=== PATIENT | male | born 1955 | race Caucasian/White ===

== ENCOUNTER 2018-11-05 20:45 | Inpatient (IN) ==
[2018-11-05 23:22] LABS: BASO# 0.04 X1000 (0.0-0.2); BASO% 0.4 % (0.0-0.8); EOS# 0.26 X1000 (0.0-0.7); EOS% 2.7 % (0.0-10.0); HEMATOCRIT 37.8 % (42.0-52.0); HEMOGLOBIN 13.5 g/dL (14.0-18.0); IMM GRAN# 0.02 X1000 (0.0-0.04); IMM GRAN% 0.2 % (0.0-0.5); LYMPH# 1.84 X1000 (1.2-3.4); LYMPH% 19.2 % (20.5-51.1); MCH 28.7 PG (27-31); MCHC 35.7 g/dL (33-37); MCV 80.3 FL (81-99); MONO# 0.62 X1000 (0.11-0.59); MONO% 6.5 % (1.7-9.3); MPV 9.8 FL (7.4-10.4); NEUT# 6.81 X1000 (1.4-6.5); PLT 231 X1000 (130-400); RBC 4.71 XMIL (4.7-6.1); RDW 14.3 % (11.5-14.5); WBC 9.59 X1000 (4.8-10.8)
[2018-11-05 23:57] LABS: ALB/GLOB RATIO 1.2; CALCIUM 8.5 mg/dL (8.8-10.2); CREATININE 1.7 mg/dL (0.7-1.2); TOTAL BILIRUBIN 0.73 mg/dL (0.20-1.00); TOTAL PROTEIN 7.3 g/dL (6.3-8.3)
[2018-11-05 23:58] LABS: POTASSIUM 2.2 mmol/L (3.5-5.1)
[2018-11-06] MEDS ORDERED: POTASSIUM CHLORIDE 40 MEQ in NS 1,000 ML IV ONE ×2
[2018-11-06] MEDS ORDERED: POTASSIUM CHLORIDE 20% LIQUID PO ONE (02:04)
[2018-11-06 07:17] LABS: URINE SOURCE CLEAN CATCH
[2018-11-06 07:20] LABS: BILIRUBIN URINE SMALL (NEGATIVE); BLOOD URINE LARGE (NEGATIVE); COLOR YELLOW; GLUCOSE URINE NEGATIVE (NEGATIVE); KETONE URINE 10 mg/dL (NEGATIVE); LEUKOCYTES URINE TRACE (NEGATIVE); NITRITE URINE NEGATIVE (NEGATIVE); PROTEIN URINE 100 mg/dL (NEGATIVE); SP GRAVITY URINE 1.022; TURBIDITY URINE CLEAR (CLEAR); UROBILINOGEN URINE 2 mg/dL (NORMAL)
[2018-11-06 08:00] LABS: UR EPITHELIAL CELLS <10 /HPF (<10); URINE BACTERIA NEGATIVE /HPF; URINE RBC <10 /HPF (<10); URINE WBC <10 /HPF (<10)
[2018-11-06 08:01] LABS: URINE CASTS NONE SEEN
[2018-11-06] MEDS ORDERED: ROCEPHIN IV ONE (08:35)
--- NOTE | 2018-11-06 08:35 | PROVIDER DOCUMENTATION ---
This chart was entered by Mana Sharma Scribe, acting as scribe for Yo Farley MD. HPI-General Adult - General Chief Complaint: Nausea/Vomiting Stated Complaint: generalized pain Time Seen by Provider: 11/05/18 22:17 Source: patient Allergies/Adverse Reactions: Patient Allergies Allergy/AdvReac Type Severity Reaction Status Date / Time No Known Allergies Allergy Unverified 06/30/18 13:05 Home Medications: Home Medication List Medication Instructions Recorded Confirmed Last Taken Type Acetaminophen with Codeine 1 each PO BID PRN PRN 06/30/18 11/06/18 Unknown History [Acetaminophen-Cod #4 Tablet] Carisoprodol [Soma] 350 mg PO HS PRN 06/30/18 11/06/18 Unknown History Clonazepam [Klonopin] 0.25 mg PO HS PRN 06/30/18 11/06/18 Unknown History Clonazepam [Klonopin] 0.25 mg PO TID PRN 06/30/18 11/06/18 Unknown History Fluticasone Propionate 220 INH 120 puff INH Q6H PRN PRN 06/30/18 11/06/18 Unknown History [Flovent 220 Microgm Hfa] Ipratropium/Albuterol INH 1 puff INH Q6H PRN PRN 06/30/18 11/06/18 Unknown History [Combivent Respimat Inhaler] Lovastatin 40 mg PO DAILY 06/30/18 11/06/18 Unknown History Montelukast Sodium [Singulair] 10 mg PO DAILY 06/30/18 11/06/18 Unknown History Aspirin 81 mg PO DAILY chewtab 07/11/18 11/06/18 Unknown Rx Cholecalciferol (Vit D3) [Vitamin 2,000 unit PO DAILY tablet 07/11/18 11/06/18 Unknown Rx D3] Cyanocobalamin (Vitamin B-12) 1,000 mcg PO DAILY #120 cap 07/11/18 11/06/18 Unknown Rx [Vitamin B-12] Folic Acid 1 mg PO BID tablet 07/11/18 11/06/18 Unknown Rx Magnesium Oxide [Mag-Ox] 400 mg PO BID tablet 07/11/18 11/06/18 Unknown Rx Pantoprazole [Protonix] 40 mg PO BID tablet 07/11/18 Unknown Rx Tamsulosin [Flomax] 0.4 mg PO QHS capsule 07/11/18 11/06/18 Unknown Rx Fexofenadine [Perlita] 180 mg PO DAILY 11/06/18 11/06/18 Unknown History Hydrochlorothiazide 25 mg PO DAILY 11/06/18 11/06/18 Unknown History - History of Present Illness -Gen Adult Nature of Presenting Problems: Pt is 63 M, presenting to ED w/ n/v for the last 3-5 days. he sts that he cannot walk well and that he feels the same as when he had Sepsis back in July. vx12+ today Location of Pain/Injury: reports: abdomen Pain Radiation: reports: no radiation Quality of Pain: reports: aching Severity: reports: moderate Onset/Duration: reports: 5 days ago Timing: reports: still present Context/Activities at Onset: reports: none Modifying Factors: improves with: nothing Associated Symptoms: reports: nausea, vomiting. denies: fever/chills Similar Symptoms Previously?: No Recently seen or treated by another doctor?: No Review of Systems - Adult - REVIEW OF SYSTEMS - ADULT Constitutional: reports: no symptoms reported. denies: chills, fever Eyes: reports: no symptoms reported Ears, Nose, Mouth & Throat: reports: no symptoms reported Cardiovascular: reports: no symptoms reported. denies: chest pain, edema Respiratory: reports: no symptoms reported. denies: cough, shortness of breath , wheezing Gastrointestinal: reports: abdominal pain, nausea, vomiting. denies: diarrhea Genitourinary: reports: no symptoms reported Musculoskeletal: reports: no symptoms reported Integumentary: reports: no symptoms reported Neurological: reports: no symptoms reported. denies: dizziness/vertigo, headache/migraines Psychiatric: reports: no symptoms reported Endocrine: reports: no symptoms reported Hematologic/Lymphatic: reports: no symptoms reported Allergic/Immunologic: reports: no symptoms reported All Other Systems: Reviewed and Negative Past History - Adult - PAST MEDICAL HISTORY-ADULT Review of Records: reports: Old Records Reviewed, Nursing Assessment Review, Medications Reviewed, Social history reviewed & non-contributory. Major Childhood Illnesses: reports: denies history Cardiovascular: reports: denies history Respiratory: reports: denies history Gastrointestinal: reports: denies history Obstetrical/Gynecological: reports: denies history Genitourinary: reports: denies history Musculoskeletal: reports: denies history Neurological: reports: denies history Psychiatric: reports: denies history Endocrine/Immune: reports: denies history Other Conditions: reports: denies history - PRIOR SURGERIES/PROCEDURES Surgical/Procedure History: reports: reviewed, not pertinent - IMMUNIZATION STATUS Childhood Immunizations: See Nurse Assessment Flu Vaccine: See Nurse Assessment - FAMILY HISTORY Family History: reviewed, not pertinent - SOCIAL HISTORY Smoking: quit greater than 1 year Provider spent 3-5 mins advising pt. on dangers of tobacco.: Discussed manners to quit use, and f/u contacts for add'l counseling. Substance Use: none/never Alcohol Use Frequency: occasionally Physical Exam-General - PHYSICAL EXAM-ADULT Initial Vital Signs Reviewed: Yes - CONSTITUTIONAL General Appearance: appears well, alert, mild distress - EYES Eyes: PERRL/EOMI - HEAD, EARS, NOSE, MOUTH & THROAT HENMT: normocephalic/atraumatic, moist mucous membranes, normal ENT inspection, TMs normal, pharynx normal - NECK Neck: non-tender, full range of motion, supple, normal inspection - RESPIRATORY Respiratory: chest non-tender, lungs clear, normal breath sounds - CARDIOVASCULAR Cardiovascular: regular rate, rhythm, no edema - GASTROINTESTINAL (ABDOMEN) Abdominal Exam: normal bowel sounds, non tender, soft, no organomegaly, no pulsatile mass. negative: guarding, rigid, rebound, tenderness - LYMPHATIC Lymphatic: no adenopathy - MUSCULOSKELETAL Back Exam: normal inspection, no CVA tenderness, no vertebral tenderness Extremity: normal range of motion, non-tender, normal gait, normal inspection - SKIN Integumentary: normal color, normal turgor, warm/dry - NEUROLOGIC Neurologic: full stack net developer II-XII nml as tested, grossly normal - PSYCHIATRIC Psych/Mental Status: normal mood/affect, normal thought content, normal thought process, oriented x 3 Progress - PLAN OF CARE/RESULTS Progress/Plan/Lab Results: Vital Signs - 8 hr 11/05/18 20:55 Temperature 98.1 F Pulse Rate 89 Respiratory Rate 16 Blood Pressure 125/63 O2 Sat by Pulse Oximetry 97 Orders Category Date Time Status ALCOHOL BLOOD Stat Lab 11/05/18 23:06 Ordered CBC WITH ELECTRONIC DIFF [HEME] Stat Lab 11/05/18 23:06 Ordered COMPREHENSIVE METABOLIC PANEL [CHEM] Stat Lab 11/05/18 23:06 Ordered URINALYSIS [URINALYSIS] Stat Lab 11/05/18 21:31 Uncollected EKG [EKG] Stat Ther 11/05/18 20:56 Ordered At recheck pt is still feeling weak and unable to ambulate in the ER unassisted. Result Diagrams: 11/07/18 07:02 11/07/18 07:02 - EKG 1 Time of EKG reading by physician:: 21:07 EKG Read and Signed by:: Yo Farley EKG Interpretation (*Must complete 3 of following elements*): Normal (sinus rhythm with premature atrial complexes, Otherwise normal GREG) Rate: 87 [place]: normal - CONSULTS/PCP/HOSPITALIST Notification #1 *Consult/PCP/Hospitalist*: Verónica for Dr Quinonez Time Discussed: 08:34 Consult Disposition: Admit Departure - Departure Date of Disposition Decision: 11/06/18 Time of Disposition Decision: 08:34 DIAGNOSIS: UTI (urinary tract infection), Hypokalemia Disposition: ADMITTED INPATIENT 09 Certified Medical Emergency: Emergent Condition: Fair - Critical Care Note This patient required my direct & personal management of CC.: No Attestation - Physician/ KATHERINE Attestation Patient care was provided by Advanced Practice Provider:: No The physician spent face to face time with patient:: Yes Advanced Practice Provider documentation review:: Supervising physician onsite and consulted in the evaluation and care of this patient. The physician did have a face to face encounter with the patient. This chart was documented by the indicated scribe, (Mana Sharma, Scribe) and accurately reflects the services I performed and decisions made by me, Yo Farley MD, as attested by the provider's signature.
[2018-11-06] MEDS ORDERED: ROCEPHIN 1 GM in NS 50 ML IV ONE (09:13)
[2018-11-06 09:33] LABS: MAGNESIUM 2.3 mg/dL (1.5-2.7); PHOSPHORUS 2.7 mg/dL (2.7-4.5)
--- NOTE | 2018-11-06 09:33 | HISTORY AND PHYSICAL ---
SUBJECTIVE: Apparently, he is living in a hotel. I am not sure if he is even inside at the present time. It appears that he is homeless. He has not been able to walk and he has been falling. Frequent falls. He has some abrasions on his face and forehead. He has scratches on his lower extremities and so came to our emergency room. His potassium is low. He is awake. He is alert and gives a pretty good history. PAST MEDICAL HISTORY: 1. Chronic pain disorder. 2. Hypertension. 3. Dyslipidemia. 4. COPD. 5. Benign prostatic hypertrophy. PAST SURGICAL HISTORY: He denies any surgical history. SOCIAL HISTORY: A pack to two packs a day of cigarettes. He says no alcohol. ALLERGIES: No known drug allergies. PHYSICIAN: His doctor is Dr. Paniagua, I believe, is what he says. MEDICATIONS FROM HOME: We will review his list. The list that I saw from June 2018 was Norvasc 5 mg a day, Soma p.r.n., Klonopin p.r.n., Flovent inhaler, hydrochlorothiazide 25 mg a day, Combivent, lansoprazole 30 mg a day, lisinopril 40 mg a day, lovastatin 40 mg a day, and Singulair 10 mg a day. REVIEW OF SYSTEMS: He is not sure about weight but he does not report any weight gain or loss. He does not report any fever or chills. No reports of change in vision or hearing acuity. No neck pain. No shoulder or arm pain, or back pain reported. Respiratory: No increased work of breathing or dyspnea. He does have underlying COPD. Cardiovascular: He does not report any chest pain or palpitations. Endocrinologic/Hematologic: No significant history. GI and : He has no complaints of change in bowels or nausea or diarrhea or gross hematuria or dysuria. PHYSICAL EXAMINATION: VITAL SIGNS: In the emergency room, sitting up, temperature 98.0 degrees, pulse 80, respirations 20, blood pressure 132/87, O2 saturation 99%. Weight 180 pounds, height 5 feet 11 inches. HEENT: His pupils were equal. Conjunctivae pink. Sclerae were clear. LYMPHATICS: I did not appreciate any periauricular, cervical, or supraclavicular adenopathy. LUNGS: Clear anterolateral. No wheezes or rhonchi. CARDIOVASCULAR EXAMINATION: Regular rhythm and rate without murmur S3. PMI nondisplaced. ABDOMEN: Soft, nontender. No sign of ascites. EXTREMITIES: He has abrasions and they look fairly recent on his feet and on his legs. They go up to his ceballos, almost to his knee. No pedal edema. LAB: Reviewed labs. White count 9590, hematocrit 37, platelet count 231,000. Chemistry: Sodium 131, potassium is 2.2. He was given some potassium and it is up to 2.8. Chloride 90, BUN 35, creatinine 1.7. AST 286, ALT 65, alkaline phosphatase 150, total protein 7.3. Note, his creatinine was 0.9 back in July. ASSESSMENT AND PLAN: 1. General weakness. I do not think his nutrition has had much intake. We will check and follow his electrolytes including phosphorus, magnesium, potassium, and calcium. We will check his T4, TSH, B12, and folate. We will get a cortisol level now and we will also get one in the morning, and give him some intravenous fluids and see how he does with oral intake. 2. Acute kidney injury. I suspect most of this is prerenal. We will give him some intravenous fluids. Give him normal saline. Actually, we will start off at 125 mL an hour for 8 hours. Then we will go down to 85 mL an hour. 3. Elevated liver enzymes. Apparently, he has denied alcohol but I think we have to be ready for possible alcohol withdrawals. 4. Muscle weakness, probably multifactorial, electrolytes, nutrition. We will see if we can supplement and corrected his imbalances, and have physical therapy work with him. 5. Abrasions on his feet. We will apply topical care and ask wound care to help. 6. He is homeless. We are going to have to figure out where he can go. We will get social service involved. 7. Elevated liver enzymes. We will get a hepatitis profile. Looking back at his records, I do not see any history of hepatitis reported anyway. 8. Chronic obstructive pulmonary disease, history of tobacco. 9. I do see a history of chronic pain syndrome. 10. Looking at his recorded medications from home, he apparently was taking codeine #4. We will obviously hold that. Aspirin 81 mg a day. He was getting Soma 350 mg at bedtime. We will hold the Soma and the codeine #4. He was getting vitamin D3 2000 units a day. He was getting Klonopin 1 mg at bedtime. I think we can continue that. He was also getting Klonopin 0.25 mg by mouth three times a day so we will continue the Klonopin at 0.25 mg three times a day and the 1 mg at night. He is on vitamin B12 at 1000 mcg daily. He was getting a fluticasone inhaler which we will give him 2 puffs twice a day, folic acid 1 mg twice a day, Combivent Respimat inhaler 1 puff every 6 hours, lovastatin 40 mg daily. He was getting magnesium oxide 400 mg twice a day. We will hold his Singulair. He was getting Protonix 40 mg twice a day, MiraLAX 17 g twice a day, and then Flomax 0.4 mg at bedtime. cc: Deangelo Nolasco MD
[2018-11-06] MEDS ORDERED: NS + KCL 40 MEQ 1,000 ML IV ONE (10:27)
[2018-11-06] MEDS ORDERED: NS 1,000 ML IV ONE (10:27)
[2018-11-06] MEDS ORDERED: ZOFRAN IV PRN (10:27)
[2018-11-06] MEDS ORDERED: VITAMIN B-12 PO ONE (10:27)
[2018-11-06] MEDS: ASPIRIN PO SCH (11:51)
[2018-11-06] MEDS: KLONOPIN PO SCH ×3 (11:51→16:57)
[2018-11-06] MEDS: PROTONIX IV SCH (11:52)
[2018-11-06] MEDS: TYLENOL PO PRN (16:57)
[2018-11-06] MEDS: FOLIC ACID PO SCH (20:48)
--- NOTE | 2018-11-07 07:29 | EKG Report ---
Test Performed on : 11/07/2018 07:23:18 AM Test Reason : hypokalemia Blood Pressure : / mmHG Vent. Rate : 066 BPM Atrial Rate : 066 BPM P-R Int : 172 ms QRS Dur : 076 ms QT Int : 410 ms P-R-T Axes : 062 043 051 degrees QTc Int : 429 ms Normal sinus rhythm. with sinus arrhythmia. Normal ECG When compared with ECG of 05-NOV-2018 21:07, (Unconfirmed) premature atrial complexes. are no longer present QT has lengthened Confirmed by Emilio MUÑOZ, Ronny Marie ([id number]) on 11/07/2018 3:56:46 PM
--- NOTE | 2018-11-07 07:32 | Diag Imaging Result Doc PS360 ---
EXAM: CHEST-PORTABLE HISTORY: followd up TECHNIQUE: Chest single view COMPARISON: 07/01/2018 FINDINGS: Poor inspiratory effort. The heart is not enlarged. The right subclavian line has been removed since the prior exam. The vessels are not distended. There are no infiltrates. No effusion identified. IMPRESSION: Negative exam. Electronically signed by Brenton Kim 11/07/2018 7:30 AM
[2018-11-07 07:44] LABS: BASO# 0.01 X1000 (0.0-0.2); BASO% 0.2 % (0.0-0.8); EOS# 0.26 X1000 (0.0-0.7); EOS% 4.9 % (0.0-10.0); HEMATOCRIT 31.3 % (42.0-52.0); LYMPH# 1.22 X1000 (1.2-3.4); LYMPH% 22.9 % (20.5-51.1); MCH 28.7 PG (27-31); MCHC 35.1 g/dL (33-37); MCV 81.7 FL (81-99); MONO% 7.5 % (1.7-9.3); MPV 9.6 FL (7.4-10.4); NEUT# 3.44 X1000 (1.4-6.5); NEUT% 64.5 % (42.2-75.2); PLT 194 X1000 (130-400); RBC 3.83 XMIL (4.7-6.1); RDW 14.3 % (11.5-14.5); WBC 5.33 X1000 (4.8-10.8)
[2018-11-07 07:48] LABS: AGAP 13; ALB/GLOB RATIO 1.4; ALBUMIN 3.4 g/dL (3.5-5.0); ALKALINE PHOSPHATASE 101 U/L (32-122); BUN 18 mg/dL (8-22); CALCIUM 8.1 mg/dL (8.8-10.2); CHLORIDE 99 mmol/L (98-107); COSMO 276; ESTIMATED GFR > 60; GLUCOSE 130 mg/dL (70-104); GOT 153 U/L (10-34); GPT 46 U/L (10-44); MAGNESIUM 1.9 mg/dL (1.5-2.7); SODIUM 136 mmol/L (136-145); TCO2 24 mmol/L (25-35); TOTAL BILIRUBIN 0.52 mg/dL (0.20-1.00); TOTAL PROTEIN 5.8 g/dL (6.3-8.3)
[2018-11-07 08:19] LABS: POTASSIUM 2.5 mmol/L (3.5-5.1)
--- NOTE | 2018-11-07 08:23 | EKG Report ---
Test Performed on : 11/05/2018 9:07:18 PM Test Reason : a fib Blood Pressure : / mmHG Vent. Rate : 087 BPM Atrial Rate : 087 BPM P-R Int : 176 ms QRS Dur : 078 ms QT Int : 308 ms P-R-T Axes : 059 014 038 degrees QTc Int : 370 ms Sinus rhythm. with premature atrial complexes. Otherwise normal ECG No previous ECGs available Unconfirmed Result
[2018-11-07] MEDS: KLONOPIN PO SCH ×3 (08:53→17:53)
[2018-11-07] MEDS: ROCEPHIN 1 GM in NS 50 ML IV SCH (08:54)
[2018-11-07] MEDS: PROTONIX IV SCH ×2 (08:54→09:55)
[2018-11-07] MEDS: FOLIC ACID PO SCH ×2 (08:54→20:17)
[2018-11-07] MEDS: ASPIRIN PO SCH (08:54)
[2018-11-07] MEDS ORDERED: KLOR-CON PO ONE ×2 (09:20→10:27)
[2018-11-07] MEDS ORDERED: MAGNESIUM SULFATE 2 GM/S.W.I. 2 GM/50 ML IVPB IV ONE (09:21)
--- NOTE | 2018-11-07 10:30 | Diag Imaging Result Doc PS360 ---
EXAM: US GB < RUQ (LIMITED) HISTORY: elevated LFTs TECHNIQUE: Right upper quadrant ultrasound COMPARISON: None. FINDINGS: Normal pancreas. No abdominal aortic aneurysm. Normal inferior vena cava. No focal hepatic abnormality. The liver is mildly prominent. No ascites in the right upper quadrant. Normal right kidney. No hydronephrosis. The gallbladder is not present. The common bile duct measures 5 mm. IMPRESSION: 1.Cholecystectomy 2.Prominent liver Electronically signed by Brenton Kim 11/07/2018 10:27 AM
[2018-11-07] MEDS ORDERED: KLOR-CON PO SCH (12:30)
--- NOTE | 2018-11-07 13:58 | PROGRESS NOTE ---
DATE: 11/07/2018 SUBJECTIVE: He was awake and appeared comfortable, breathing comfortably. I asked him how he is doing. He says he is hurting and he would like to have his Tylenol 4 back. But, he stayed lethargic most of the day yesterday and had difficulty getting him to stand or walk. So, I told him that I was not going to start back his opioid pain medicines and he could pursue that as an outpatient if he wanted to. We need to supplement his potassium again; it was 2.5. OBJECTIVE: Vital signs: Temp 98.1 degrees, pulse 69, respirations 18, blood pressure 114/70. HEENT: Pupils are equal. Neck: No distended neck veins. Lungs: Clear in all lung carney. Cardiovascular: Regular rhythm and rate without murmur or S3. Abdomen: Soft. Skin: Warm and dry. His abrasions on his feet and legs seem to be improving. They are drying out. DIAGNOSTIC STUDIES: Ultrasound of abdomen: Status post cholecystectomy. He has a prominent liver. His EKG is really unremarkable. Normal sinus rhythm, normal EKG. He was found unable to walk and falling. I think he has been living in a hotel. Apparently he does have insurance. His feet and legs were scraped up. He was unable to hold up his weight. His potassium was very low. His ethanol level was 0. It would probably be reasonable to get a urine drug screen on him. I do not see that one was gotten on admission. ASSESSMENT AND PLAN: 1. General weakness, low potassium. Phosphorous and magnesium were a little low, so we will continue supplement. His magnesium was 1.9 so I gave him a little magnesium today as well. 2. Lethargy, metabolic encephalopathy. He is much better. He is awake and alert. 3. Apparently chronic pain syndrome. I am going to hold his opioids and we will let him use Tylenol and maybe some Motrin for pain. Dr. Paniagua is his doctor. 4. Abrasions on his legs and feet. Appear to be healing. 5. Elevated liver enzymes. We will continue to follow. We will send off for a hepatitis profile. 6. History of chronic obstructive pulmonary disease, history of tobacco. 7. Review of his list of medications. Right now he is on aspirin 81 mg a day. He is on Klonopin 0.25 mg t.i.d., folic acid 1 mg b.i.d., Protonix 40 mg IV daily. I have him on ceftriaxone 1 g q.24 hours just empirically; I do not have any sign of infection. He is getting normal saline. I think we are running it at 85 mL an hour. His renal function looks good, so I guess we can turn his fluids back to keep vein open. cc: Deangelo Nolasco MD
[2018-11-07] MEDS: TYLENOL PO PRN (20:17)
[2018-11-08 07:42] LABS: AGAP 10; BUN 11 mg/dL (8-22); CALCIUM 8.2 mg/dL (8.8-10.2); CHLORIDE 104 mmol/L (98-107); COSMO 277; CREATININE 0.7 mg/dL (0.7-1.2); ESTIMATED GFR > 60; GLUCOSE 105 mg/dL (70-104); POTASSIUM 2.9 mmol/L (3.5-5.1); SODIUM 139 mmol/L (136-145); TCO2 25 mmol/L (25-35)
[2018-11-08] MEDS: FOLIC ACID PO SCH ×2 (10:10→22:39)
[2018-11-08] MEDS: ROCEPHIN 1 GM in NS 50 ML IV SCH (10:10)
[2018-11-08] MEDS: ASPIRIN PO SCH (10:10)
[2018-11-08] MEDS: SODIUM CHLORIDE 0.9% INJ SCH (10:15)
[2018-11-08] MEDS: KLONOPIN PO SCH ×3 (10:15→22:39)
[2018-11-08] MEDS: PROTONIX IV SCH ×2 (10:20→10:29)
[2018-11-08 11:03] LABS: HEPATITIS PROFILE ACUTE SEE COMMENTS
[2018-11-08] MEDS: TYLENOL PO PRN (22:45)
[2018-11-09 07:11] LABS: BASO# 0.02 X1000 (0.0-0.2); BASO% 0.3 % (0.0-0.8); EOS% 3.3 % (0.0-10.0); HEMATOCRIT 33.1 % (42.0-52.0); HEMOGLOBIN 11.7 g/dL (14.0-18.0); IMM GRAN# 0.02 X1000 (0.0-0.04); IMM GRAN% 0.3 % (0.0-0.5); LYMPH# 1.82 X1000 (1.2-3.4); LYMPH% 29.8 % (20.5-51.1); MCH 29.3 PG (27-31); MCHC 35.3 g/dL (33-37); MONO# 0.48 X1000 (0.11-0.59); MONO% 7.9 % (1.7-9.3); MPV 9.4 FL (7.4-10.4); NEUT# 3.57 X1000 (1.4-6.5); NEUT% 58.4 % (42.2-75.2); PLT 215 X1000 (130-400); RBC 3.99 XMIL (4.7-6.1); RDW 14.9 % (11.5-14.5); WBC 6.11 X1000 (4.8-10.8)
[2018-11-09 07:48] LABS: AGAP 11; ALB/GLOB RATIO 1.5; ALBUMIN 3.5 g/dL (3.5-5.0); ALKALINE PHOSPHATASE 83 U/L (32-122); BUN 10 mg/dL (8-22); CALCIUM 8.4 mg/dL (8.8-10.2); CHLORIDE 105 mmol/L (98-107); COSMO 278; CREATININE 0.7 mg/dL (0.7-1.2); ESTIMATED GFR > 60; GLUCOSE 99 mg/dL (70-104); GOT 53 U/L (10-34); GPT 33 U/L (10-44); POTASSIUM 2.9 mmol/L (3.5-5.1); SODIUM 140 mmol/L (136-145); TCO2 24 mmol/L (25-35); TOTAL BILIRUBIN 0.37 mg/dL (0.20-1.00); TOTAL PROTEIN 5.8 g/dL (6.3-8.3)
[2018-11-09] MEDS: TYLENOL PO PRN ×2 (08:20→16:38)
[2018-11-09] MEDS: ROCEPHIN 1 GM in NS 50 ML IV SCH (08:20)
[2018-11-09] MEDS: ASPIRIN PO SCH (08:20)
[2018-11-09] MEDS: FOLIC ACID PO SCH ×2 (08:20→20:19)
[2018-11-09] MEDS: KLONOPIN PO SCH ×3 (08:20→20:20)
[2018-11-09] MEDS ORDERED: KLOR-CON PO ONE (08:45)
[2018-11-09] MEDS ORDERED: MAGNESIUM SULFATE 2 GM/S.W.I. 2 GM/50 ML IVPB IV ONE (08:45)
[2018-11-09] MEDS: PROTONIX IV SCH (11:52)
[2018-11-09] MEDS: SODIUM CHLORIDE 0.9% INJ SCH (11:52)
[2018-11-09] MEDS: POTASSIUM CHLORIDE 20 MEQ/SWI 20 MEQ/100 ML IVPB IV SCH ×2 (13:32→16:38)
[2018-11-09 16:11] LABS: AGAP 12; BUN 10 mg/dL (8-22); CALCIUM 8.6 mg/dL (8.8-10.2); CHLORIDE 104 mmol/L (98-107); COSMO 275; CREATININE 0.7 mg/dL (0.7-1.2); ESTIMATED GFR > 60; GLUCOSE 110 mg/dL (70-104); POTASSIUM 3.8 mmol/L (3.5-5.1); SODIUM 138 mmol/L (136-145); TCO2 22 mmol/L (25-35)
--- NOTE | 2018-11-09 16:33 | PROGRESS NOTE ---
DATE: 11/09/2018 SUBJECTIVE: This patient is sleepy but arousable. He is oriented x3. He is breathing comfortably. He is complaining of generalized weakness and generalized pain. He states that his abdomen is tender. His extremities are tender. Chest is tender. His potassium is still low and we have replaced that today again. Magnesium level was 2 yesterday. We have stopped his medications especially hydrochlorothiazide which can cause hypokalemia. I will put this patient back on some of his home medications and I will continue physical therapy. He has some pus coming out from his left great toe; it looks like it is coming from behind the nail. The wound care nurse called me and we will get a formal consult with Surgery Department to see if this needs to be removed right now. He is on ceftriaxone and I will continue with the same management. OBJECTIVE: Vital Signs: Temperature 97.8 degrees, pulse 72, respiratory rate 16, blood pressure 139/84, oxygen saturation 94 on room air. HEENT: Head normocephalic. No trauma. PERRLA. He does have some wounds on his face. They are dry. They look old. Neck: Supple. No JVD. Central trachea. Chest: Clear to auscultation. No wheezing. No rales. Abdomen: Soft, nontender, nondistended. No hepatosplenomegaly. Extremities: No edema. No clubbing. No cyanosis. He does have some wounds at the level of the toes, multiple. He is draining some pus from underneath the nail on the left side. As per the patient, he has been crawling to be able to move from 1 place to another and that is why he has those lesions. Neurological: Alert and oriented x3. No focal deficits. LABORATORY: WBC 6.1, hemoglobin 11.7, hematocrit 33.1, platelets 215,000. Sodium 140, potassium 2.9, chloride 105, bicarbonate 24, BUN 10, creatinine 0.7, glucose 99, calcium 8.4, albumin 3.5. ASSESSMENT AND PLAN: 1. Hypokalemia. I will replace the potassium today again. I will recheck the potassium in the afternoon and replace it as needed. Magnesium level is normal. 2. Lethargy, metabolic encephalopathy. This is much better. He is answering all of my questions. 3. Chronic pain syndrome. Apparently he has been having problems with opioids before and they have been stopped. We will continue with the same management. I will put this patient back on muscle relaxants. 4. Abrasions on his legs and feet. Those appear to be healing except that he has a left great toe infection. 5. Elevated liver enzymes. Continue to follow. Hepatitis profile has been negative. 6. History of chronic obstructive pulmonary disease, not in exacerbation. 7. History of tobacco abuse. Aware. He has been highly advised against tobacco use. I will continue with daily cessation education. 8. Some episodes of watery bowel movements/diarrhea. I will ask for a C. difficile toxin and antigen, stool WBC, and I will place this patient on some IV fluids. cc: John Juarez MD
[2018-11-09] MEDS: 1/2 NS 1,000 ML IV SCH (16:54)
[2018-11-09] MEDS: FLOMAX PO SCH (20:19)
[2018-11-09] MEDS: SOMA PO PRN (22:35)
--- NOTE | 2018-11-10 02:20 | GENERAL SURGERY CONSULTATION ---
DATE: 11/09/2018 HISTORY OF PRESENT ILLNESS: This is a 63-year-old gentleman who was admitted to the hospitalist service on the . He has apparently had a fall. He has had a history of homelessness, lives in a hotel, and presented with abrasions on his lower extremities and face. Unclear the etiology of this, but he has significant electrolyte derangements, and was admitted for management. He has multiple chronic medical problems. He is undergoing local wound care, however there are concerns about his left 1st toe not improving. He does not really have much in the way of pain. He thinks he is getting better. MEDICAL HISTORY: Chronic pain, hypertension, hyperlipidemia, COPD, BPH. SURGICAL HISTORY: No vascular surgeries. No other surgeries for that matter. SOCIAL HISTORY: Smokes 2 packs a day. No alcohol. He is homeless at times. Dr. Paniagua is his physician. REVIEW OF SYSTEMS: Ten-point negative. FAMILY HISTORY: Reviewed and noncontributory. PHYSICAL EXAMINATION: Vital Signs: Temperature 97.8 degrees, pulse 72, blood pressure 139/84. General: He is unkempt, but in no acute distress. HEENT: No scleral icterus. Cardiovascular: Normal rate. Pulmonary: No increased work of breathing. Abdomen: Soft. Integument: Warm and dry. There are scattered abrasions over his face and lower extremities. Peripheral Vascular: He has palpable pedal pulses and femoral pulses. He has a granulating wound to his left 1st toe. I do not see any necrosis or purulence. There is some drainage. It is serous. No lower extremity edema. Lymphatic: No inguinal adenopathy. LABS: White count 6, hematocrit 33, creatinine 0.7. Potassium is up to 3.8. It has been low in the 2s most of the week. Albumin is 3.5. I reviewed his progress notes. He did have an abdominal ultrasound that apparently showed post cholecystectomy changes. ASSESSMENT AND PLAN: This is a 63-year-old gentleman with multiple abrasions. He has a wound to his left 1st toe. I would continue local wound care, as you are doing currently. I do not see signs of infection. He is on antibiotics. Possibly, this looked worse previously. We will continue to follow him along, monitor him closely, but I do suspect that he will improve with antibiotics and local wound care. cc: Koko Jackson MD
[2018-11-10 07:02] LABS: BASO# 0.02 X1000 (0.0-0.2); BASO% 0.3 % (0.0-0.8); EOS# 0.12 X1000 (0.0-0.7); EOS% 1.7 % (0.0-10.0); HEMATOCRIT 35.1 % (42.0-52.0); HEMOGLOBIN 12.2 g/dL (14.0-18.0); LYMPH# 1.64 X1000 (1.2-3.4); LYMPH% 23.9 % (20.5-51.1); MCH 29.2 PG (27-31); MCHC 34.8 g/dL (33-37); MONO# 0.51 X1000 (0.11-0.59); MONO% 7.4 % (1.7-9.3); MPV 9.3 FL (7.4-10.4); NEUT# 4.58 X1000 (1.4-6.5); NEUT% 66.7 % (42.2-75.2); PLT 222 X1000 (130-400); RBC 4.18 XMIL (4.7-6.1); RDW 15.3 % (11.5-14.5); WBC 6.87 X1000 (4.8-10.8)
[2018-11-10 07:22] LABS: AGAP 11; BUN 7 mg/dL (8-22); CALCIUM 8.2 mg/dL (8.8-10.2); CHLORIDE 105 mmol/L (98-107); COSMO 274; CREATININE 0.7 mg/dL (0.7-1.2); ESTIMATED GFR > 60; GLUCOSE 106 mg/dL (70-104); POTASSIUM 3.4 mmol/L (3.5-5.1); SODIUM 138 mmol/L (136-145); TCO2 22 mmol/L (25-35)
[2018-11-10] MEDS: 1/2 NS 1,000 ML IV SCH ×3 (07:34→21:02)
[2018-11-10] MEDS ORDERED: KLOR-CON PO ONE (09:34)
[2018-11-10] MEDS: ASPIRIN PO SCH ×2 (10:19→10:21)
[2018-11-10] MEDS: ROCEPHIN 1 GM in NS 50 ML IV SCH (10:19)
[2018-11-10] MEDS: PROTONIX IV SCH (10:19)
[2018-11-10] MEDS: SINGULAIR PO SCH (10:19)
[2018-11-10] MEDS: ALLEGRA PO SCH (10:19)
[2018-11-10] MEDS: FOLIC ACID PO SCH ×2 (10:20→21:01)
[2018-11-10] MEDS: KLONOPIN PO SCH ×3 (10:22→21:01)
[2018-11-10] MEDS: TYLENOL PO PRN (10:25)
[2018-11-10] MEDS ORDERED: TORADOL IV ONE ×2 (11:02)
--- NOTE | 2018-11-10 11:36 | PROGRESS NOTE ---
DATE: 11/10/2018 SUBJECTIVE: This patient is awake. He is oriented x3. He is breathing comfortably. He is complaining of generalized weakness and pain. Physical therapy working with this patient. Potassium is a little bit low, and I will replace it today again. We have stopped some of his medications especially hydrochlorothiazide, that can cause hypokalemia. OBJECTIVE: Vital Signs: Temperature 97.8 degrees, pulse 86, respiratory rate 18, blood pressure 144/66, oxygen saturation 96 on room air. HEENT: Head normocephalic. No trauma. PERRLA. Neck: Supple. No JVD. No masses. Central trachea. He has some wounds on his face, but they look old and dry. Chest: Clear to auscultation. No wheezing. No rales. Abdomen: Soft, nontender, nondistended. No hepatosplenomegaly. Extremities: No edema. No clubbing. No cyanosis. He does have some wounds at the level of the toes and they are multiple. Apparently, he is not draining any kind of pus today or secretion today. As per the patient, he crawling to be able to move from 1 place to another and this is how he got a those lesions. Neurological: This patient is alert and oriented x3. No focal deficits. LABORATORY: WBC 6.8, hemoglobin 12.2, hematocrit 35.1, platelets 222,000. Sodium 138, potassium 3.4, chloride 105, bicarbonate 22, BUN 7, creatinine 0.7, glucose 106, calcium 8.2. ASSESSMENT AND PLAN: 1. Hypokalemia. I will continue replacing the potassium. 2. Lethargy, metabolic encephalopathy, resolved. 3. Chronic pain syndrome. Apparently, he has been having problem with opioids before and they have been stopped. I will give him 1 dose of Toradol today to see how he does. He has been placed back on muscle relaxants. 4. Abrasions on his legs and feet, also on his face, that appear to be healing well. It looks the left great toe was getting some secretion yesterday but not today. 5. Elevated liver enzymes. Continue to follow. Hepatitis profile has been negative. Those are getting better. 6. History of chronic obstructive pulmonary disease, not in exacerbation. 7. History of tobacco abuse aware. This patient has been highly advised against tobacco use. I will continue with daily cessation education. 8. Diarrhea. Clostridium difficile toxin and antigen negative as well as white blood cells. I will put this patient on loperamide as needed. cc: John Juarez MD
[2018-11-10] MEDS: IMODIUM PO PRN ×2 (12:30→18:58)
--- NOTE | 2018-11-10 15:43 | GENERAL SURGERY PROGRESS NOTE ---
DATE: 11/10/2018 SUBJECTIVE: He is doing well. Dressing changes going fine. No fevers. No tachycardia. His right foot wounds appear to be healing without evidence of infection. I reviewed his labs. ASSESSMENT AND PLAN: This is a gentleman with abrasions to bilateral feet. He has diabetes and likely peripheral vascular disease, but I see no evidence of ongoing infections. His wounds seem to be healing. cc: Koko Jackson MD
[2018-11-10] MEDS: FLOMAX PO SCH (21:01)
[2018-11-10] MEDS: SOMA PO PRN (21:01)
[2018-11-11 07:29] LABS: AGAP 15; BUN 5 mg/dL (8-22); CALCIUM 8.3 mg/dL (8.8-10.2); CHLORIDE 102 mmol/L (98-107); COSMO 267; CREATININE 0.7 mg/dL (0.7-1.2); ESTIMATED GFR > 60; GLUCOSE 99 mg/dL (70-104); POTASSIUM 3.4 mmol/L (3.5-5.1); SODIUM 135 mmol/L (136-145); TCO2 18 mmol/L (25-35)
[2018-11-11] MEDS: KLONOPIN PO SCH ×2 (08:55→15:01)
[2018-11-11] MEDS: ASPIRIN PO SCH ×2 (08:56→08:59)
[2018-11-11] MEDS: ALLEGRA PO SCH (08:56)
[2018-11-11] MEDS: ROCEPHIN 1 GM in NS 50 ML IV SCH (08:57)
[2018-11-11] MEDS: SINGULAIR PO SCH (08:57)
[2018-11-11] MEDS: FOLIC ACID PO SCH (08:57)
[2018-11-11] MEDS: IMODIUM PO PRN ×2 (09:43→16:17)
[2018-11-11] MEDS: TYLENOL PO PRN (09:43)
[2018-11-11] MEDS ORDERED: KLOR-CON PO ONE (10:56)
--- NOTE | 2018-11-11 12:21 | DISCHARGE SUMMARY ---
ADMISSION DATE: 11/06/2018 DISCHARGE DATE: DISCHARGE DIAGNOSES: 1. Hypokalemia. 2. Metabolic encephalopathy/dementia, better. 3. Chronic pain syndrome with a past medical history of opioid abuse. 4. Abrasions on his legs, feet, and face. 5. Elevated liver enzymes with negative hepatitis profile, resolved. 6. History of chronic obstructive pulmonary disease, not in exacerbation. 7. History of tobacco abuse. 8. History of opioid abuse. 9. Loose bowel movements. HISTORY OF PRESENT ILLNESS/HOSPITAL COURSE: A 63-year-old, male with a past medical history of chronic pain disorder with history of opioid abuse, hypertension, dyslipidemia, COPD not in exacerbation, BPH who presented to the emergency department with generalized weakness and multiple falls. Apparently, he has been living in a hotel but we are not sure about it, it appears that he is homeless. He has multiple abrasions on his legs and face. He presented with hypokalemia as well as dehydration. Even though he does not have a recognized history of dementia, I do believe this patient is demented. He does have acute kidney injury likely due to dehydration. He was admitted to the medical floor. He has been placed on potassium and fluids. His kidney function recovered completely. He has been working with physical therapy. Potassium level has been much better compared with admission. Today is 3.4 and we will replace it again. This patient claims to have a lot of diarrhea. As per the patient, he had 17 episodes of diarrhea yesterday and 12 today from 4 a.m. to 10 a.m. which is hard to believe. I asked the charge nurse, also her nurse and the DIE DESIGNER APPRENTICE taking care of him and they denied that. He is reported to have 2 bowel movements yesterday and 2 bowel movements a day. Again, I do not believe this patient has the strength to get up and go to the bathroom 17 times yesterday and 12 times today. He is really weak and the plan is to send this patient to a rehab center. He needs to follow up with his primary care doctor at the end of the rehabilitation but since I believe he probably is homeless, I do not think he will follow up with a doctor or even look for one. He is not complaining of chest pain or shortness of breath. He is complaining of mild abdominal discomfort at the epigastric area. He has been placed on Protonix as well. PHYSICAL EXAMINATION: Vital Signs: Temperature 98.4 degrees, pulse 80, respiratory rate 18, blood pressure 133/76, oxygen saturation 100% on room air. HEENT: Head normocephalic. He does have some excoriation on his face. They do not look infected. PERRLA. Neck: Supple. No JVD. No masses. Central trachea. Chest: Clear to auscultation. No wheezing. No rales. Abdomen: Soft, protuberant. Positive bowel sounds. Extremities: No edema. No clubbing. No cyanosis. He does have multiple wounds at the level of the toes and feet, Excoriations/abrasions. Apparently he was not able to walk so he was crawling. Neurological: The patient is alert. He is oriented at this moment x3 but he has been confused on and off. No focal deficits. LABORATORY: Sodium 135, potassium 3.4, chloride 102, bicarbonate 18, BUN 5, creatinine 0.7, glucose 99, calcium 8.3. DISCHARGE INSTRUCTIONS: Follow up with his primary care doctor at the end of the rehab center stay. They will get a new CBC and CMP in 1 week and recheck for the potassium. In case of needing more potassium, it can be replaced at the rehab center. He can get an extra dose of 40 daily. As per the patient, he does not have a family, just a friend, and apparently he is living in a hotel but as per the patient, the friend will be taking care of him. DISCHARGE MEDICATIONS: Tamsulosin 0.4 mg p.o. at bedtime, Perlita 180 mg p.o. daily, Singulair 10 mg p.o. daily, magnesium oxide 400 mg p.o. b.i.d., lovastatin 40 mg p.o. daily, Combivent Respimat inhaler 1 puff inhaler q.6 h. as needed, Flovent 220 mcg HFA 1 puff inhaler q.6 h. as needed, vitamin B12 1000 mcg p.o. daily, vitamin D3 2000 units p.o. daily, Soma 350 mg p.o. at bedtime as needed, aspirin 81 mg p.o. daily, potassium chloride 20 mg p.o. daily, pantoprazole 40 mg p.o. b.i.d., loperamide 2 mg p.o. q.4 h. as needed, folic acid 1 mg p.o. daily, clonazepam 0.25 mg p.o. t.i.d. as needed, cephalexin 500 mg p.o. q.12 h., and Tylenol 650 mg p.o. q.6 h. as needed. Again this patient states that he is having multiple bowel movements, 17 times yesterday and 12 today. I do not think this is the reality. I already talked to the charge nurse, her nurse, and the DIE DESIGNER APPRENTICE and they denied that. He has documented 2 bowel movements yesterday and 2 today. TIME SPENT: Time discharging this patient 35 minutes. cc: John Juarez MD
[2018-11-11] MEDS: PROTONIX IV SCH (13:27)
[2018-11-11 16:42] VITALS: BP 135/76
== END 2018-11-11 19:53 | DRG 641 ==
LOC: SUPCPDRO → ED 20:45 → 3N 11-06 09:52 → SUATTDRO 11-06 09:52 → 3N 11-08 05:26
PROVIDERS: ATTEND Internal Medicine
CPT/HCPCS: 71010; 71045; 76705; 80048; 80053; 80074; 80307; 80320; 81001; 82055; 82607; 82746; 83735; 84100; 84132; 84443; 85025; 87045; 87046; 87088; 87205; 87324; 87449; 89055; 93005; 93010; 96365; 96366; 96367; 97110; 97116; 97162; 97166; 97530; 99285; A9270; C9113; G0480; G6040; J0696; J1885; J3475; J3480; J7030; S0164